=== PATIENT | female | born 1955 | race Caucasian/White ===

== ENCOUNTER 2016-11-27 05:56 | Emergency (ER) | payer BC ==
--- NOTE | 2016-11-29 07:05 | ER ---
ADMIT: 11/27/2016 RM/LOC: ER [facility] MR#: [id number] [id number] GABRIEL CARMICHAEL [address] [place] [id number] Emergency Room Report SEX: F AGE: 61 : 1955 DATE: 11/27/2016 HISTORY OF PRESENT ILLNESS: The patient is a 61-year-old female with no specific past medical history and with family history of coronary artery disease at young age, who came to the ER with chief complaint of mild shortness of breath and also feeling pain and discomfort in the middle of the chest. The patient states since 2012, she has similar problem and had been to office many times and had a stress test a year ago, which was negative. The patient states the shortness of breath resolved by itself, but she feels a little pressure and tightness in the middle of the chest with no radiation. The patient also complains of some numbness of the left upper extremity. At the moment, the tightness is 2/10 in severity. The patient states it started while she woke up from sleep. The patient took aspirin 324 mg last night. The last stress test was a year ago and was negative. PHYSICAL EXAMINATION: VITAL SIGNS: The patient was afebrile, no tachycardia, O2 saturation was 98% to 99% on room air, the patient was not tachypneic. GENERAL: The patient was alert, but anxious. HEAD and NECK: Noncontributory. LUNGS: Clear bilaterally. HEART: Normal S1, S2 without any murmurs. ABDOMEN: Soft. EXTREMITIES: There is no swelling in the extremities. The rest of the physical exam is noncontributory. EKG was normal sinus rhythm with a rate of 75. Chest x-ray was negative for any pathologies. The patient was signed off to next shift to follow up on the lab works, cardiac enzymes, and dispo accordingly. The patient received GI cocktail in the ER and was closely observed. Doron Brannon MD/ page JOB #: [id number] CC: Doron Brannon MD, Attending Physician Simone Cota MD, Family Physician
== END 2016-11-27 07:45 | disposition home or self-care (01) ==
LOC: ER 05:56
DX: R07.9 Chest pain, unspecified (principal); E78.5 Hyperlipidemia, unspecified; Z98.890 Other specified postprocedural states; Z88.5 Allergy status to narcotic agent; Z79.899 Other long term (current) drug therapy